=== PATIENT | female | born 1960 | race Two or more races ===

== ENCOUNTER 2023-09-09 16:10 | Emergency (ER) | payer OTHER ==
[~2023-09-09] VITALS: Ht 154.9 cm; Wt 68.1 kg
[2023-09-09] MEDS ORDERED: HYDROcodone-ACET 10/325MG TAB PO ONE (17:00)
[2023-09-09 17:13] VITALS: BP 151/83; PULSE 62; RESP 16; O2SAT 100
[2023-09-09] MEDS ORDERED: IBUP1TAB5 PO (20:42)
[2023-09-09] MEDS ORDERED: HYDR-4902 PO (20:42)
== END 2023-09-09 20:44 | disposition home or self-care (01) ==
LOC: ER 16:10 → EDBD 16:10 → ER 20:44
DX: S80.01XA Contusion of right knee, initial encounter (principal); W01.0XXA Fall on same level from slipping, tripping and stumbling without subsequent striking against object, initial encounter; Y93.89 Activity, other specified; Y92.89 Other specified places as the place of occurrence of the external cause; Y99.8 Other external cause status
CPT/HCPCS: 29505; 73502; 73562